=== PATIENT | male | born 1985 | race Two or more races ===

== ENCOUNTER 2021-07-21 07:29 | Emergency (ER) | payer MEDICAID, SELFPAY ==
[2021-07-21] VITALS (8 sets, daily range): BP systolic 112–144; BP diastolic 52–77; PULSE 72–105; RESP 14–20; TEMP 36.6–36.8; O2SAT 97–99; BMI 20.7
--- NOTE | 2021-07-21 08:28 | PC.NURSE ---
Addendum entered by Amelie Scott RN 07/21/21 09:16: Around 0835, pt had another seizure with provider present. 2 mg Ativan admin IM. At 912, while RN in room, pt had another seizure, shaking. No threat to airway visualized. Patient repositioned to right lateral. Seizure lasted about 1 minute. No post ictal phases noted for either seizure. Original Note: At 821, this RN called to room by lidar technician, stating I think patient is having a seizure . Upon entering room, pt shaking, eyes closed, arms folded in to chest. Patient placed on right later side, seizure lasted approx 50 seconds. Provider aware.
--- NOTE | 2021-07-21 08:31 | PC.NURSE ---
NO POST ICTAL PHASE NOTED, PT REPORTS NO CURRENT MEDICATIONS
[2021-07-21] MEDS: LORazepam 2 MG/ML VIAL IM (08:45)
[2021-07-21] MEDS: 0.9 % Sodium Chloride 1,000 ML 999 ML IV (09:12)
[2021-07-21 09:18] LABS: MANUAL DIFF FLAG NO
[2021-07-21 09:19] LABS: Basophils Percent Auto 0.2 % (0-2); Eosinophils Percent Auto 0.4 % (0-4); Hematocrit 42.5 % (42.0-52.0); Hemoglobin 14.4 g/dl (14.0-18.0); Imm Gran Abs Auto 0.04 X10*3/uL (0.00-0.03); Imm Gran Pct Auto 0.4 % (0.0-0.4); Lymphocytes Absolute Auto 1.9 X10*3/uL (1.2-4.9); Lymphocytes Percent Auto 17.2 % (20-40); Mean Corpuscular HGB Conc 33.9 g/dl (31.0-36.0); Mean Corpuscular Volume 91.6 fL (80.0-98.0); Mean Platelet Volume 8.4 fL (9.4-12.4); Monocytes Absolute Auto 0.9 X10*3/uL (0.1-1.2); Monocytes Percent Auto 8.1 % (2-11); Neutrophils Absolute Auto 8.2 x10*3/uL (2.0-8.3); Neutrophils Percent Auto 73.7 % (45-73); Platelet Count 352 X10*3/uL (160-400); Red Blood Count 4.64 X10*6/uL (4.60-5.80); Red Cell Distribution Width 12.5 % (11.0-16.0); White Blood Count 11.1 X10*3/uL (4.8-10.8)
[2021-07-21 09:33] LABS: Ethanol < 10 mg/dL
[2021-07-21 09:38] LABS: Salicylate < 5.0 mg/dL (15-30)
[2021-07-21 09:39] LABS: Acetaminophen LAB < 1 mcg/mL (<30); Alanine Aminotransferase 30 U/L (0-40); Albumin Level 4.6 g/dL (3.5-5.0); Alkaline Phosphatase 101 U/L (39-117); Anion Gap 15 (12-20); Aspartate Amino Transferase 28 U/L (5-37); Bilirubin Total 0.9 mg/dL (0.0-1.0); Blood Urea Nitrogen 15 mg/dL (9-16); Calcium 9.7 mg/dL (8.4-10.2); Carbon Dioxide 24 mmol/L (22-29); Chloride 103 mmol/L (96-108); Creatinine Clr Calc Pharmacy 105.6; Estimated Glomerular Filt Rate > 60; Glucose Random 79 mg/dL (60-115); Potassium 3.9 mmol/L (3.3-5.1); Sodium 138 mmol/L (135-145); Total Protein 7.1 g/dL (6.5-8.0)
[2021-07-21 10:10] LABS: Phenytoin Dilantin < 0.5 ug/mL (10.0-20.0)
[2021-07-21 10:52] LABS: Appearance Urine HAZY; Color Urine YELLOW; Glucose Urine UA NEG (NEG); Leukocyte Esterase Urine NEG (NEG); Nitrite Urine NEG (NEG); Urine Blood NEG (NEG); Urine Ketones >=80 MG/DL (NEG); Urine Protein NEG (NEG-TRACE)
[2021-07-21 11:06] LABS: COVID-19 Test Negative (Negative); IDNOW Serial# 9DD0AD1C
[2021-07-21 11:08] LABS: Mucus Urine 1+ /LPF; RBC Urine 0 /HPF (0); Squamous Epithelial Cell Urine 1+ /LPF; WBC Urine 0 /HPF (0-4)
[2021-07-21 11:13] LABS: Amphetamine Screen Urine Not Detected (Not Detect); Barbiturates, Urine Not Detected (Not Detect); Benzodiazepines Screen Urine Not Detected (Not Detect); Cannabinoid Screen Urine POSITIVE (Not Detect); Cocaine Screen Urine POSITIVE (Not Detect); Fentanyl, urine Not Detected (Not Detect); Opiate Screen Urine Not Detected (Not Detect); Phencyclidine Screen Urine Not Detected (Not Detect)
[2021-07-21] MEDS: Phenytoin Sodium Extended 100 MG CAPSULE PO (11:29)
--- NOTE | 2021-07-21 11:44 | ED.PSYCH ---
HPI - Psych General Chief Complaint: Psychiatric Symptoms Stated Complaint: CRISIS Time Seen by Provider: 07/21/21 08:25 Source: patient Mode of arrival: EMS Limitations: no limitations History of Present Illness HPI Narrative: 36-year-old male presents with suicidal ideation. Patient states he does have a plan, but is sauce or racing so much she can not remember what his plan is. Has had attempts before, overdosing on pills. Has had 1 prior psychiatric hospitalization. States he is homeless, has been walking around all night. No homicidal ideation, no auditory or visual hallucinations. States he did do a lot of cocaine last night and smokes marijuana regularly. States he has not slept for 2 weeks. States he is supposed to take medication for anxiety and depression but has not been taking it. He has not been to his doctor and has not refilled his medication due to depression. States takes Dilantin 100 mg for epilepsy. MD complaint: suicidal ideation, anxiety and substance abuse Onset (ago): week(s) Duration: getting worse History of same: Yes Relieving factors: none Exacerbating factors: drug use Context: recent drug abuse and not taking psychiatric medications Associated psychiatric symptoms: depression, suicidal ideation and racing thoughts Associated symptoms: insomnia Treatments prior to arrival: none If self harm: admits thoughts of self harm and has plan Related Data Allergies Allergy/AdvReac Type Severity Reaction Status Date / Time No Known Allergies Allergy Verified 07/21/21 07:41 Review of Systems Constitutional: Constitutional: Reports body ache(s), Denies chills, Denies fatigue, Denies fever(s), Reports headache(s), Denies malaise and Denies weakness Eyes: Eyes: Denies diplopia ENT: Denies vertigo, Denies dizziness, Denies otalgia, Reports headache(s), Denies mouth pain, Denies post nasal drip, Denies sinus pain, Denies sinus pressure, Denies sore throat and Denies throat swelling Cardiovascular: Cardiovascular: Denies chest pain, Denies syncope, Denies leg edema, Denies lightheadedness, Denies Loss of Consciousness, Denies palpitations and Denies dyspnea Respiratory: Respiratory: Denies chest congestion, Denies cough and Denies dyspnea Gastrointestinal: Gastrointestinal: Denies abdominal pain, Denies hematochezia, Denies constipation, Denies diarrhea and Denies vomiting Musculoskeletal: Musculoskeletal: Reports no additional musculoskeletal complaints Neurologic: Denies Abnormal speech present, Reports confusion, Denies vertigo, Denies dizziness, Denies syncope, Reports headache(s), Denies Sensory deficit (Neuro) and Denies weakness Psychiatric: Psychiatric: Reports abnormal sleep pattern, Reports anxiety, Reports confusion, Reports depression, Reports hopelessness, Denies visual hallucinations, Denies hallucinations, Denies tactile hallucinations, Denies homicidal ideation and Reports suicidal ideation Endocrine: Endocrine: Denies fatigue and Denies palpitations Allergic/Immunologic: Allergic/Immunologic: Denies throat swelling PMFSH Social History Social History Alcohol intake: current Use of substances other than those prescribed or required for medical reasons: Yes Substance Use Type: Crack/Cocaine Substance Use Frequency: Recent Binge Last Used Substance: Hours (ago) Advance Directives: No Advance Directives Information Provided: Yes Physical Exam Vital Signs: Vital Signs: Last Vital Signs Temp 97.8 F 07/21/21 15:17 Pulse 89 07/21/21 15:17 Resp 14 07/21/21 15:17 BP 119/52 L 07/21/21 15:17 Pulse Ox 97 07/21/21 15:17 BMI result Body Mass Index 20.7 Const: General: alert, awake and confusion Nutritional Appearance: well nourished Orientation/consciousness: oriented to person, No oriented to place, No oriented to time and confusion Limitations: no limitations HENMT: Head: Yes normal to inspection, Yes normocephalic and Yes atraumatic Ears: hearing grossly normal bilaterally, external ears normal, TM's normal bilaterally and EAC's normal General nose exam: Normal external nose present Face and sinus: Yes normal facial exam and Yes sinuses nontender Mouth: Normal oral and palatal mucosa present Throat: Yes posterior oropharynx normal Eyes: Conjunctivae: conjunctivae normal Pupils: Equal, round and reactive pupils present EOM: EOMs intact bilaterally Neck: Neck: Yes full ROM, Yes no lymphadenopathy and Yes supple Resp: Effort & Inspection: normal respiratory effort and able to speak in complete sentences Auscultation: clear to auscultation bilaterally, no crackles, no rales, no rhonchi and no wheezes Cardio: Rate: regular rate Rhythm: regular rhythm Heart sounds: S1 normal heart sound present and S2 normal heart sound present GI: Inspection: Yes normal to inspection Palpation (GI): Soft to palpation, nontender, no guarding and not rigid Percussion: Yes normal to percussion Auscultation: normal bowel sounds Skin: General skin exam: no rashes or lesions noted Neuro: Other: During my exam, patient had less than 1 minute shaking seizure-like activity where he was not responsive. When patient stopped seizing, he was not postictal, he was alert and oriented and speaking in clear full sentences General: oriented to person, No oriented to place, No oriented to time and confusion Cranial nerves: Yes CN's II-XII intact bilaterally, Yes Equal, round and reactive pupils present, Yes Bilaterally intact EOM present, Yes Nystagmus not present, Yes Normal facial strength present, Yes Midline tongue present, Yes Ability to bilaterally rotate head present and Yes Ability to bilaterally elevate shoulders present Cognition (Neuro): normal cognition Speech: No Abnormal speech present Gait exam (Neuro): Normal gait present Motor exam (neuro): 5/5 motor strength present throughout Sensory Exam: No Sensory deficit (Neuro) Deep tendon reflexes (DTR's): Right brachioradialis reflex intensity grade: 1+, Left brachioradialis reflex intensity grade: 1+, Right patellar reflex intensity grade: 1+ and Left patellar reflex intensity grade: 1+ Coordination: [id number] test normal Romberg Test: Negative Pupils: Normal pupillary reactivity/response: bilateral Extrem: General: Yes normal to inspection and Yes full ROM Psych: Appearance: grossly normal Affect: normal affect Attitude: cooperative Thought process: Normal thought process present Course Course Course Narrative: 36-year-old male with a past medical history of anxiety and depression, and epilepsy, presents for suicidal ideation with a plan. On exam, patient is anxious, knows his name, but does not know where he is or what the date is. States he has not slept for weeks, and did a lot of cocaine last night. Has racing thoughts. During my exam, patient had less than 1 minute shaking seizure-like activity where he was not responsive. He was given 2 IM of Ativan When patient stopped seizing, he was not postictal, he was alert and oriented and speaking in clear full sentences Patient has dilantin level not detectable, patient gets 100mg Dilantin at home, prescribed that now Patient is COVID negative, urine is positive for marijuana cocaine. Labs are only remarkable for mild leukocytosis at 11.1. Reevaluation(s) Reevaluation #1: Patient is a bed search and is admitted to physician obs at this time MDM - Psych Lab Data Result diagrams: 07/21/21 09:11 07/21/21 09:11 Labs: Lab Results 07/21/21 07/21/21 07/21/21 Range/Units 09:11 09:11 09:11 WBC 11.1 H (4.8-10.8) X10*3/uL RBC 4.64 (4.60-5.80) X10*6/uL Hgb 14.4 (14.0-18.0) g/dl Hct 42.5 (42.0-52.0) % MCV 91.6 (80.0-98.0) fL MCH 31.0 (27.0-33.0) pg MCHC 33.9 (31.0-36.0) g/dl RDW 12.5 (11.0-16.0) % Plt Count 352 (160-400) X10*3/uL MPV 8.4 L (9.4-12.4) fL Immature Gran % (Auto) 0.4 (0.0-0.4) % Neut % (Auto) 73.7 H (45-73) % Lymph % (Auto) 17.2 L (20-40) % [place] % (Auto) 8.1 (2-11) % Eos % (Auto) 0.4 (0-4) % Baso % (Auto) 0.2 (0-2) % Lymph # (Auto) 1.9 (1.2-4.9) X10*3/uL [place] # (Auto) 0.9 (0.1-1.2) X10*3/uL Eos # (Auto) 0.0 (0.0-0.4) X10*3/uL Baso # (Auto) 0.0 (0.0-0.2) X10*3/uL Abs Immat Gran (auto) 0.04 H (0.00-0.03) X10*3/uL Absolute Neuts (auto) 8.2 (2.0-8.3) x10*3/uL Absolute Nucleated RBC 0.000 (0.0-0.012) X10*3/uL Nucleated RBC % (auto) 0.0 (0.0-0.2) /100WBC Sodium 138 (135-145) mmol/L Potassium 3.9 (3.3-5.1) mmol/L Chloride 103 (96-108) mmol/L Carbon Dioxide 24 (22-29) mmol/L Anion Gap 15 (12-20) BUN 15 (9-16) mg/dL Creatinine 0.79 (0.5-1.4) mg/dL Estim Creat Clear Calc 105.6 Estimated GFR > 60 Random Glucose 79 (60-115) mg/dL Calcium 9.7 (8.4-10.2) mg/dL Total Bilirubin 0.9 (0.0-1.0) mg/dL AST 28 (5-37) U/L ALT 30 (0-40) U/L Alkaline Phosphatase 101 (39-117) U/L Total Protein 7.1 (6.5-8.0) g/dL Albumin 4.6 (3.5-5.0) g/dL Urine Color Urine Appearance Urine pH (5.0-8.0) Ur Specific [place] (1.005-1.025) Urine Protein (NEG-TRACE) MG/DL Urine Glucose (UA) (NEG) MG/DL Urine Ketones (NEG) MG/DL Urine Blood (NEG) Urine Nitrite (NEG) Ur Leukocyte Esterase (NEG) Urine RBC (0) /HPF Urine WBC (0-4) /HPF Ur Squamous Epith Cells /LPF Urine Bacteria /LPF Urine Mucus /LPF Salicylates < 5.0 L (15-30) mg/dL Urine Opiates Screen (Not Detect) Urine Fentanyl Screen (Not Detect) Acetaminophen < 1 (<30) mcg/mL Ur Barbiturates Screen (Not Detect) Phenytoin < 0.5 L* (10.0-20.0) ug/mL Ur Phencyclidine Scrn (Not Detect) Ur Amphetamines Screen (Not Detect) U Benzodiazepines Scrn (Not Detect) Urine Cocaine Screen (Not Detect) U Marijuana (THC) Screen (Not Detect) Ethyl Alcohol < 10 mg/dL COVID-19 ([facility]AKIYA) (Negative) COVID-19 Clin Com 07/21/21 07/21/21 07/21/21 Range/Units 10:05 10:05 10:05 WBC (4.8-10.8) X10*3/uL RBC (4.60-5.80) X10*6/uL Hgb (14.0-18.0) g/dl Hct (42.0-52.0) % MCV (80.0-98.0) fL MCH (27.0-33.0) pg MCHC (31.0-36.0) g/dl RDW (11.0-16.0) % Plt Count (160-400) X10*3/uL MPV (9.4-12.4) fL Immature Gran % (Auto) (0.0-0.4) % Neut % (Auto) (45-73) % Lymph % (Auto) (20-40) % [place] % (Auto) (2-11) % Eos % (Auto) (0-4) % Baso % (Auto) (0-2) % Lymph # (Auto) (1.2-4.9) X10*3/uL [place] # (Auto) (0.1-1.2) X10*3/uL Eos # (Auto) (0.0-0.4) X10*3/uL Baso # (Auto) (0.0-0.2) X10*3/uL Abs Immat Gran (auto) (0.00-0.03) X10*3/uL Absolute Neuts (auto) (2.0-8.3) x10*3/uL Absolute Nucleated RBC (0.0-0.012) X10*3/uL Nucleated RBC % (auto) (0.0-0.2) /100WBC Sodium (135-145) mmol/L Potassium (3.3-5.1) mmol/L Chloride (96-108) mmol/L Carbon Dioxide (22-29) mmol/L Anion Gap (12-20) BUN (9-16) mg/dL Creatinine (0.5-1.4) mg/dL Estim Creat Clear Calc Estimated GFR Random Glucose (60-115) mg/dL Calcium (8.4-10.2) mg/dL Total Bilirubin (0.0-1.0) mg/dL AST (5-37) U/L ALT (0-40) U/L Alkaline Phosphatase (39-117) U/L Total Protein (6.5-8.0) g/dL Albumin (3.5-5.0) g/dL Urine Color YELLOW Urine Appearance HAZY Urine pH 6.0 (5.0-8.0) Ur Specific [place] 1.020 (1.005-1.025) Urine Protein NEG (NEG-TRACE) MG/DL Urine Glucose (UA) NEG (NEG) MG/DL Urine Ketones >=80 (NEG) MG/DL Urine Blood NEG (NEG) Urine Nitrite NEG (NEG) Ur Leukocyte Esterase NEG (NEG) Urine RBC 0 (0) /HPF Urine WBC 0 (0-4) /HPF Ur Squamous Epith Cells 1+ /LPF Urine Bacteria NONE /LPF Urine Mucus 1+ /LPF Salicylates (15-30) mg/dL Urine Opiates Screen Not Detected (Not Detect) Urine Fentanyl Screen Not Detected (Not Detect) Acetaminophen (<30) mcg/mL Ur Barbiturates Screen Not Detected (Not Detect) Phenytoin (10.0-20.0) ug/mL Ur Phencyclidine Scrn Not Detected (Not Detect) Ur Amphetamines Screen Not Detected (Not Detect) U Benzodiazepines Scrn Not Detected (Not Detect) Urine Cocaine Screen POSITIVE H (Not Detect) U Marijuana (THC) Screen POSITIVE H (Not Detect) Ethyl Alcohol mg/dL COVID-19 ([facility]AKIYA) Negative (Negative) COVID-19 Clin Com See Note Discharge Plan Discharge Clinical Impression: Suicidal ideation Patient Disposition: Still a Patient
--- NOTE | 2021-07-21 11:49 | PC.NURSE ---
SMART SHEET COMPLETED FOR [facility]
--- NOTE | 2021-07-21 20:16 | PC.NURSE ---
patient states that he is hearing a female voice in his head that is telling him to finish it with a needle or just go to the [facility] and jump .
[2021-07-22 02:02] VITALS: BP 103/58; PULSE 72; RESP 16; O2SAT 97
[2021-07-22 05:36] VITALS: RESP 16
--- NOTE | 2021-07-22 06:19 | PC.NURSE ---
MED REC DONE. PT REMAINS ON 1:1 OBS.
[2021-07-22 06:37] VITALS: BP 112/58; PULSE 74; RESP 16; O2SAT 98
[2021-07-22 06:46] LABS: Prolactin 4.2 ng/mL (2.0-18.0)
--- NOTE | 2021-07-22 06:56 | PC.NURSE ---
report given to on-coming nurse.
[2021-07-23 02:12] VITALS: BP 120/71; PULSE 57; RESP 16; TEMP 36.6; O2SAT 99
--- NOTE | 2021-07-23 06:05 | PC.NURSE ---
Patient slept through the night, no distress observed/reported, behavior appropriate, cooperative, and non concerning, medication rec completed/SEP updated, appetite good, elimination intact, disposition per N is section 12 inpatient bed search, VSS, will continue to monitor
[2021-07-23] MEDS: Sertraline HCL 50 MG TABLET PO (09:35)
[2021-07-23] MEDS: Phenytoin Sodium Extended 100 MG CAPSULE PO (09:35)
--- NOTE | 2021-07-23 10:20 | PC.NURSE ---
Pt sleeping intermittently. Calm and cooperative. Medicated as per [facility] orders. Spoke to Elva at [facility], possible placement today. Awaiting further information. Will continue to monitor.
== END 2021-07-23 13:49 ==
PROVIDERS: Physician Assistant; Emergency Provider Emergency Medicine
DX: F33.1 Major depressive disorder, recurrent, moderate (principal); R45.851 Suicidal ideations; Z20.822 Contact with and (suspected) exposure to COVID-19; F41.1 Generalized anxiety disorder; F43.0 Acute stress reaction; F14.90 Cocaine use, unspecified, uncomplicated; Z79.899 Other long term (current) drug therapy
CPT/HCPCS: 36415; 80053; 80143; 80179; 80185; 80307; 81001; 82077; 84146; 85025; 87635; 96360; 96372; 99285; J2060